=== PATIENT | male | born 1980 | race Caucasian/White ===

== ENCOUNTER 2019-01-18 23:21 | Emergency (ER) | payer SELFPAY ==
[~2019-01-18 23:21] MED LIST: ALPR2TAB5 PO; CLON1TAB PO; DIVA125T PO; FLUO20CA16 PO; RISP0.5T3 PO; TRAZ-86 PO
--- NOTE | 2019-01-18 23:25 | ED.ADGEN ---
Past History Past Medical History: Alcoholism, Anxiety, Depression, Pneumonia, Other Past Surgical History: Other Smoking: Cigarettes Alcohol Use: None Drug Use: None Adult General Chief Complaint Chief Complaint ".. I was out with some friends... they offer me some marijuana... I thought .. I would take a couple hits to relax... but right after I did it... I got really fucked up in the head.. my heart was racing....It... really made me fucked up..." I ve never done marijuana .. like that.. and they all started laughing.. so I think they slipped some other shit in the marijuana.. I am already paranoid... and depressed.. I have an anxiety disorder.. and I ve had a lot loss the last year.. I loss my Grandfather.. My father in law .. I worked for him.. and then lost my job... lost my girl friend of twenty years...lost my apt... my parent threw me out...I ve been living at the nursing home... drinking too much.. just a fuck up life..." HPI HPI Patient is a 30 year old male who presents with above hx and complaints mental status change after smoking marijuana. Patient does admit to heavy alcohol prior to today. He denies any trauma or falls. Patient has past history of anxiety disorder, depression, polysubstance abuse. Pt. multiple psychosocial stressor with family deaths, break up with girl friend, job loss, loss of apt. Pt. states he is depressed but no suicidal ideation. Pt. asked to leave the nursing home after acting out. Review of Systems Review of Systems Constitutional: Denies fever or chills [] Eyes: Denies change in visual acuity, redness, or eye pain [] HENT: Denies nasal congestion or sore throat [] Respiratory: Denies cough or shortness of breath [] Cardiovascular: No additional information not addressed in HPI [] GI: Denies abdominal pain, nausea, vomiting, bloody stools or diarrhea [] : Denies dysuria or hematuria [] Musculoskeletal: Denies back pain or joint pain [] Integument: Denies rash or skin lesions [] Neurologic: Denies headache, focal weakness or sensory changes [] Endocrine: Denies polyuria or polydipsia [] All other systems were reviewed and found to be within normal limits, except as documented in this note. Family History Family History Non-contributory Current Medications Current Medications Current Medications Medications (Trade) Dose Ordered Sig/Adrienne Start Time Stop Time Status Last Admin Dose Admin Folic Acid (FOLIC ACID SYRINGE for ER) 5 mg STK-MED ONCE 01/19/19 00:06 01/19/19 00:07 DC Lactated Ringer's 1,000 ml @ 1,000 mls/hr Q1H 01/19/19 00:00 01/19/19 00:59 DC 01/19/19 00:00 1,000 MLS/HR Multivitamins/ Minerals 10 ml/ Folic Acid 1 mg/ Thiamine HCl 100 mg/Lactated Ringer's 1,011.2 ml @ 1,011.2 mls/hr 1X ONCE 01/19/19 00:00 01/19/19 00:59 DC 01/19/19 00:00 1,011.2 MLS/HR Potassium Chloride (KCl Oral Soln) 40 meq 1X ONCE 01/19/19 01:00 01/19/19 01:01 DC 01/19/19 00:52 40 MEQ Thiamine HCl (Thiamine Vial) 200 mg STK-MED ONCE 01/19/19 00:07 01/19/19 00:08 DC Allergies Allergies Allergies Coded Allergies Type Severity Reaction Last Updated Verified Sulfa (Sulfonamide Antibiotics) Allergy Intermediate swelling 01/09/15 Yes Physical Exam Physical Exam Constitutional: in acute emotional distress, under the influence of some drug or alcohol in appearance. [] Hair cut close on sides. HENT: Normocephalic, atraumatic, bilateral external ears normal, oropharynx moist, no oral exudates, nose normal. [] Eyes: PERRLA, EOMI, conjunctiva injected, , no discharge. [] Neck: Normal range of motion, no tenderness, supple, no stridor. [] Cardiovascular:Tachycardia Heart rate regular rhythm, no murmur [] Lungs & Thorax: Bilateral breath sounds equal with scattered wheezes on auscultation [] Abdomen: Bowel sounds normal, soft, no tenderness, no masses, no pulsatile masses. [] Skin: Warm, dry, no erythema, no rash. [] Back: No tenderness, no CVA tenderness. [] Extremities: No tenderness, no cyanosis, no clubbing, ROM intact, no edema. [] Neurologic: Alert and oriented X 3, normal motor function, normal sensory function, no focal deficits noted. []DTR+ Patella and brachial. No drift. [place] equal. Ambulatory. Psychologic: Affect anxious, judgement normal, mood depressed. Current Patient Data Vital Signs Vital Signs Date Time Temp Pulse Resp B/P (MAP) Pulse Ox O2 Delivery O2 Flow Rate FiO2 01/19/19 02:00 82 14 102/56 (71) 96 01/19/19 00:26 Room Air 01/18/19 23:45 98.6 Lab Results Laboratory Tests Test 01/18/19 23:50 01/18/19 23:55 Urine Collection Type Unknown Urine Color Yellow Urine Clarity Clear Urine pH 5.5 Urine Specific [place] <=1.005 Urine Protein Neg (NEG-TRACE) Urine Glucose (UA) Neg mg/dL (NEG) Urine Ketones (Stick) Neg mg/dL (NEG) Urine Blood Neg (NEG) Urine Nitrite Neg (NEG) Urine Bilirubin Neg (NEG) Urine Urobilinogen Dipstick 0.2 mg/dL (0.2 mg/dL) Urine Leukocyte Esterase Neg (NEG) Urine RBC 0 /HPF (0-2) Urine WBC Occ /HPF (0-4) Urine Squamous Epithelial Cells Occ /LPF Urine Bacteria 0 /HPF (0-FEW) Urine Opiates Screen Neg (NEG) Urine Methadone Screen Neg (NEG) Urine Barbiturates Neg (NEG) Urine Phencyclidine Screen Neg (NEG) Urine Amphetamine/Methamphetamine Neg (NEG) Urine Benzodiazepines Screen Pos (NEG) Urine Cocaine Screen Neg (NEG) Urine Cannabinoids Screen Pos (NEG) Urine Ethyl Alcohol Pos (NEG) White Blood Count 12.0 x10^3/uL (4.0-11.0) H Red Blood Count 4.93 x10^6/uL (4.30-5.70) Hemoglobin 14.7 g/dL (13.0-17.5) Hematocrit 43.3 % (39.0-53.0) Mean Corpuscular Volume 88 fL (79-100) Mean Corpuscular Hemoglobin 30 pg (25-35) Mean Corpuscular Hemoglobin Concent 34 g/dL (31-37) Red Cell Distribution Width 14.2 % (11.5-14.5) Platelet Count 214 x10^3/uL (140-400) Neutrophils (%) (Auto) 69 % (31-73) Lymphocytes (%) (Auto) 21 % (24-48) L Monocytes (%) (Auto) 8 % (0-9) Eosinophils (%) (Auto) 2 % (0-3) Basophils (%) (Auto) 1 % (0-3) Neutrophils # (Auto) 8.2 x10^3uL (1.8-7.7) H Lymphocytes # (Auto) 2.5 x10^3/uL (1.0-4.8) Monocytes # (Auto) 0.9 x10^3/uL (0.0-1.1) Eosinophils # (Auto) 0.2 x10^3/uL (0.0-0.7) Basophils # (Auto) 0.1 x10^3/uL (0.0-0.2) Prothrombin Time 11.0 SEC (9.4-11.4) Prothrombin Time INR 1.1 (0.9-1.1) PTT 24 SEC (23-33) Sodium Level 140 mmol/L (136-145) Potassium Level 3.2 mmol/L (3.5-5.1) L Chloride Level 102 mmol/L (98-107) Carbon Dioxide Level 28 mmol/L (21-32) Anion Gap 10 (6-14) Blood Urea Nitrogen 9 mg/dL (8-26) Creatinine 1.2 mg/dL (0.7-1.3) Estimated GFR (Cockcroft-Gault) 67.8 Glucose Level 103 mg/dL (70-99) H Calcium Level 8.2 mg/dL (8.5-10.1) L Magnesium Level 2.0 mg/dL (1.8-2.4) Total Bilirubin 0.3 mg/dL (0.2-1.0) Direct Bilirubin 0.1 mg/dL (0.0-0.2) Aspartate Amino Transferase (AST) 16 U/L (15-37) Alanine Aminotransferase (ALT) 17 U/L (16-63) Alkaline Phosphatase 71 U/L (46-116) Creatine Kinase 129 U/L (39-308) Troponin I Quantitative < 0.017 ng/mL (0-0.055) TS-Lls-K-Type Natriuretic Peptide 11 pg/mL (0-124) Total Protein 6.2 g/dL (6.4-8.2) L Albumin 3.4 g/dL (3.4-5.0) Lipase 143 U/L (73-393) Ethyl Alcohol Level 31 mg/dL (0-10) H EKG EKG My interpretation EKG shows a sinus rhythm at 94 bpm. There is some left axis deviation. Fascicular block. But no findings acute STEMI with contralateral changes.[] Pt. declined 2nd EKG Radiology/Procedures Radiology/Procedures My interpretation chest x-ray shows no acute cardiopulmonary findings.[] Course & Med Decision Making Course & Med Decision Making Pertinent Labs and Imaging studies reviewed. (See chart for details) Pt. declined second EKG and Labs. Pt. stating he just needed a place to sleep tonight. Pt. encouraged to stop smoking tobacco and marijuana. Keep follow up at [facility]. Follow up with primary. Return if any concerns. Avoid further alcohol binges. Return if he elects to repeat his EKG and Labs as recommended. [] Final Impression Final Impression 1. Polysubstance Abuse 2. Anxiety Disorder 3. Depression 4. Tobacco and Marijuana Use[] 5. Possible Abnormal EKG- Fascicular Block and Anteroseptal contour changes 6. Hypokalemia 7. Hx ETOH Abuse Dragon Disclaimer Dragon Disclaimer This electronic medical record was generated, in whole or in part, using a voice recognition dictation system. Discharge Summary Visit Information Final Diagnosis Problems Medical Problems: (1) Polysubstance (excluding opioids) dependence, daily use Status: Acute Brief Hospital Course Allergies Allergies Coded Allergies Type Severity Reaction Last Updated Verified Sulfa (Sulfonamide Antibiotics) Allergy Intermediate swelling 01/09/15 Yes Vital Signs Vital Signs Date Time Temp Pulse Resp B/P (MAP) Pulse Ox O2 Delivery O2 Flow Rate FiO2 01/19/19 02:00 82 14 102/56 (71) 96 01/19/19 00:26 Room Air 01/18/19 23:45 98.6 Lab Results Laboratory Tests Test 01/18/19 23:50 01/18/19 23:55 Urine Collection Type Unknown Urine Color Yellow Urine Clarity Clear Urine pH 5.5 Urine Specific [place] <=1.005 Urine Protein Neg (NEG-TRACE) Urine Glucose (UA) Neg mg/dL (NEG) Urine Ketones (Stick) Neg mg/dL (NEG) Urine Blood Neg (NEG) Urine Nitrite Neg (NEG) Urine Bilirubin Neg (NEG) Urine Urobilinogen Dipstick 0.2 mg/dL (0.2 mg/dL) Urine Leukocyte Esterase Neg (NEG) Urine RBC 0 /HPF (0-2) Urine WBC Occ /HPF (0-4) Urine Squamous Epithelial Cells Occ /LPF Urine Bacteria 0 /HPF (0-FEW) Urine Opiates Screen Neg (NEG) Urine Methadone Screen Neg (NEG) Urine Barbiturates Neg (NEG) Urine Phencyclidine Screen Neg (NEG) Urine Amphetamine/Methamphetamine Neg (NEG) Urine Benzodiazepines Screen Pos (NEG) Urine Cocaine Screen Neg (NEG) Urine Cannabinoids Screen Pos (NEG) Urine Ethyl Alcohol Pos (NEG) White Blood Count 12.0 x10^3/uL (4.0-11.0) Red Blood Count 4.93 x10^6/uL (4.30-5.70) Hemoglobin 14.7 g/dL (13.0-17.5) Hematocrit 43.3 % (39.0-53.0) Mean Corpuscular Volume 88 fL (79-100) Mean Corpuscular Hemoglobin 30 pg (25-35) Mean Corpuscular Hemoglobin Concent 34 g/dL (31-37) Red Cell Distribution Width 14.2 % (11.5-14.5) Platelet Count 214 x10^3/uL (140-400) Neutrophils (%) (Auto) 69 % (31-73) Lymphocytes (%) (Auto) 21 % (24-48) Monocytes (%) (Auto) 8 % (0-9) Eosinophils (%) (Auto) 2 % (0-3) Basophils (%) (Auto) 1 % (0-3) Neutrophils # (Auto) 8.2 x10^3uL (1.8-7.7) Lymphocytes # (Auto) 2.5 x10^3/uL (1.0-4.8) Monocytes # (Auto) 0.9 x10^3/uL (0.0-1.1) Eosinophils # (Auto) 0.2 x10^3/uL (0.0-0.7) Basophils # (Auto) 0.1 x10^3/uL (0.0-0.2) Prothrombin Time 11.0 SEC (9.4-11.4) Prothromb Time International Ratio 1.1 (0.9-1.1) Activated Partial Thromboplast Time 24 SEC (23-33) Sodium Level 140 mmol/L (136-145) Potassium Level 3.2 mmol/L (3.5-5.1) Chloride Level 102 mmol/L (98-107) Carbon Dioxide Level 28 mmol/L (21-32) Anion Gap 10 (6-14) Blood Urea Nitrogen 9 mg/dL (8-26) Creatinine 1.2 mg/dL (0.7-1.3) Estimated GFR (Cockcroft-Gault) 67.8 Glucose Level 103 mg/dL (70-99) Calcium Level 8.2 mg/dL (8.5-10.1) Magnesium Level 2.0 mg/dL (1.8-2.4) Total Bilirubin 0.3 mg/dL (0.2-1.0) Direct Bilirubin 0.1 mg/dL (0.0-0.2) Aspartate Amino Transf (AST/SGOT) 16 U/L (15-37) Alanine Aminotransferase (ALT/SGPT) 17 U/L (16-63) Alkaline Phosphatase 71 U/L (46-116) Creatine Kinase 129 U/L (39-308) Troponin I Quantitative < 0.017 ng/mL (0-0.055) IF-Gzj-L-Type Natriuretic Peptide 11 pg/mL (0-124) Total Protein 6.2 g/dL (6.4-8.2) Albumin 3.4 g/dL (3.4-5.0) Lipase 143 U/L (73-393) Ethyl Alcohol Level 31 mg/dL (0-10) Brief Hospital Course Mr. Kelly is a 38 old male who presented with hx of confusion after smoking marijuana with friends. Discharge Information Condition at Discharge: Improved, Stable Disposition/Orders: D/C to Home Dischare Medications Current Medications Lactated Ringer's 1,000 ml @ 1,000 mls/hr Q1H IV Last administered on 01/19/19at 00:00; Admin Dose 1,000 MLS/HR; Start 01/19/19 at 00:00; Stop 01/19/19 at 00:59; Status DC Multivitamins/ Minerals 10 ml/ Folic Acid 1 mg/ Thiamine HCl 100 mg/Lactated Ringer's 1,011.2 ml @ 1,011.2 mls/hr 1X ONCE IV Last administered on 01/19/19at 00:00; Admin Dose 1,011.2 MLS/HR; Start 01/19/19 at 00:00; Stop 01/19/19 at 00:59; Status DC Folic Acid (FOLIC ACID SYRINGE for ER) 5 mg STK-MED ONCE IV ; Start 01/19/19 at 00:06; Stop 01/19/19 at 00:07; Status DC Thiamine HCl (Thiamine Vial) 200 mg STK-MED ONCE IV ; Start 01/19/19 at 00:07; Stop 01/19/19 at 00:08; Status DC Potassium Chloride (KCl Oral Soln) 40 meq 1X ONCE PO Last administered on 01/19/19at 00:52; Admin Dose 40 MEQ; Start 01/19/19 at 01:00; Stop 01/19/19 at 01:01; Status DC Active Scripts Active Reported Prozac (Fluoxetine Hcl) 20 Mg Capsule 1 Cap PO DAILY Alprazolam 2 Mg Tablet 1 Tab PO BID Kevin Disclaimer This chart was dictated in whole or in part using Voice Recognition software in a busy, high-work load, and often noisy Emergency Department environment. It may contain unintended and wholly unrecognized errors or omissions. AMY DOLL MD Jan 18, 2019 23:25
[2019-01-19] MEDS ORDERED: MVI, ADULT NO.4 WITH VIT K 10 ML, FOLIC ACID SYRINGE for ER 1 MG, THIAMINE INJ 100 MG i... IV ONE ×4
[2019-01-19] MEDS ORDERED: IV RINGERS SOLUTION,LACTATED 1,000 ML IV SCH
[2019-01-19] MEDS ORDERED: FOLIC ACID 5 MG/ML SYRINGE for ER IV ONE (00:06)
[2019-01-19] MEDS ORDERED: THIAMINE 200 MG/2 ML VIAL. IV ONE (00:07)
[2019-01-19 00:19] LABS: BASO # 0.1 x10^3/uL (0.0-0.2); BASO % 1 % (0-3); EOS # 0.2 x10^3/uL (0.0-0.7); EOS % 2 % (0-3); HEMATOCRIT 43.3 % (39.0-53.0); HEMOGLOBIN 14.7 g/dL (13.0-17.5); LYMPH # 2.5 x10^3/uL (1.0-4.8); LYMPH % 21 % (24-48); MEAN CORPUSCULAR HEMOGLOBIN 30 pg (25-35); MEAN CORPUSCULAR HGB CONC 34 g/dL (31-37); MEAN CORPUSCULAR VOLUME 88 fL (79-100); MONO # 0.9 x10^3/uL (0.0-1.1); MONO % 8 % (0-9); NEUT # 8.2 x10^3uL (1.8-7.7); NEUT % 69 % (31-73); PLATELET COUNT 214 x10^3/uL (140-400); RED BLOOD COUNT 4.93 x10^6/uL (4.30-5.70); RED CELL DISTRIBUTION WIDTH 14.2 % (11.5-14.5)
[2019-01-19 00:31] LABS: BARBITURATES NEG (NEG); BENZODIAZEPINES POS (NEG); CANNABINOIDS POS (NEG); COCAINE NEG (NEG); METHADONE NEG (NEG); OPIATES NEG (NEG); PHENCYCLIDINE NEG (NEG)
[2019-01-19 00:33] LABS: BACTERIA,URINE 0 /HPF (0-FEW); BILIRUBIN,URINE NEG (NEG); CLARITY,URINE CLEAR; COLOR,URINE YELLOW; GLUCOSE,URINE NEG (NEG); NITRITE,URINE NEG (NEG); RBC,URINE 0 /HPF (0-2); SQUAMOUS EPITHELIAL CELL,UR OCC /LPF; UROBILINOGEN,URINE 0.2 mg/dL (0.2 mg/dL); WBC,URINE OCC /HPF (0-4)
[2019-01-19 00:37] LABS: AMPHETAMINE/METHAMPHETAMINE NEG (NEG)
[2019-01-19 00:40] LABS: ALBUMIN 3.4 g/dL (3.4-5.0); CALCIUM 8.2 mg/dL (8.5-10.1); CREATININE 1.2 mg/dL (0.7-1.3); DIRECT BILIRUBIN 0.1 mg/dL (0.0-0.2); GFR 67.8; POTASSIUM 3.2 mmol/L (3.5-5.1); TOTAL BILIRUBIN 0.3 mg/dL (0.2-1.0); TOTAL PROTEIN 6.2 g/dL (6.4-8.2)
[2019-01-19] MEDS ORDERED: POTASSIUM CHLORIDE 20 MEQ/15 ML ORAL LIQUID. PO ONE (01:00)
--- NOTE | 2019-01-19 01:01 | RAD ---
Indication:Tachycardia TECHNIQUE:Portable AP chest X-ray COMPARISON:None FINDINGS: Heart is normal in size. Mild central bilateral peribronchial wall thickening. No focal consolidation. No pneumothorax or pleural effusion. Visualized bony thorax within normal limits. IMPRESSION: Findings suggests mild bronchitis. Electronically signed by: Travis Garcia DO (01/19/2019 12:59 AM) [facility]
[2019-01-19 02:00] VITALS: BP 102/56
--- NOTE | 2019-01-19 10:40 | EKG ---
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 Electronically Signed On 01-22-2019 9:29:52 CDT by Kailash Solano
== END 2019-01-19 02:00 | disposition home or self-care (01) ==
LOC: ER 23:21
DX: F19.20 Other psychoactive substance dependence, uncomplicated (principal); F41.9 Anxiety disorder, unspecified; F32.9 Major depressive disorder, single episode, unspecified; E87.6 Hypokalemia; F12.90 Cannabis use, unspecified, uncomplicated; F17.210 Nicotine dependence, cigarettes, uncomplicated; F10.20 Alcohol dependence, uncomplicated; Z88.2 Allergy status to sulfonamides; Y90.1 Blood alcohol level of 20-39 mg/100 ml
CPT/HCPCS: 36415; 71045; 80048; 80076; 80307; 81001; 82550; 83690; 83735; 83880; 84443; 84484; 85025; 85610; 85730; 93005; 96365; 99285; G0480; J7120

== ENCOUNTER 2019-04-18 11:00 | Emergency (ER) | payer SELFPAY ==
[~2019-04-18] VITALS: Ht 172.7 cm; Wt 68.0 kg
--- NOTE | 2019-04-18 11:25 | PHYS DOC ---
Past History Past Medical History: Anxiety, Bipolar Past Surgical History: Other Smoking: Cigarettes Alcohol Use: Occasionally Drug Use: None Adult General Chief Complaint Chief Complaint: ANKLE PROBLEM HPI HPI 39-year-old male presents with right ankle and right knee pain. The patient states that yesterday he was jumping off of a wall about 15 feet high. He feels like when he landed he may have hyperextended his knee and felt like his foot compressed more than the other side. He had some pain at that time, but was able to walk gently ignored it. After he woke up today, he had more pain. The greatest pain is at the anterior ankle, but he also has some lateral knee pain. The patient is able to walk, but tells me that putting weight on those 2 joints is painful. He denies fever or chills. He has no other complaints. Review of Systems Review of Systems Constitutional: Denies fever or chills [] Eyes: Denies change in visual acuity, redness, or eye pain [] HENT: Denies nasal congestion or sore throat [] Respiratory: Denies cough or shortness of breath [] Cardiovascular: No additional information not addressed in HPI [] GI: Denies abdominal pain, nausea, vomiting, bloody stools or diarrhea [] : Denies dysuria or hematuria [] Musculoskeletal: Right knee and right ankle pain [] Integument: Denies rash or skin lesions [] Neurologic: Denies headache, focal weakness or sensory changes [] Endocrine: Denies polyuria or polydipsia [] All other systems were reviewed and found to be within normal limits, except as documented in this note. Allergies Allergies Allergies Coded Allergies Type Severity Reaction Last Updated Verified Sulfa (Sulfonamide Antibiotics) Allergy Intermediate swelling 01/09/15 Yes Physical Exam Physical Exam Constitutional: Well developed, well nourished, no acute distress, non-toxic appearance. [] HENT: Normocephalic, atraumatic, bilateral external ears normal, oropharynx moist, no oral exudates, nose normal. [] Eyes: PERRLA, EOMI, conjunctiva normal, no discharge. [] Neck: Normal range of motion, no tenderness, supple, no stridor. [] Cardiovascular:Heart rate regular rhythm, no murmur [] Lungs & Thorax: Bilateral breath sounds clear to auscultation [] Abdomen: Bowel sounds normal, soft, no tenderness, no masses, no pulsatile masses. [] Skin: Warm, dry, no erythema, no rash. [] Back: No tenderness, no CVA tenderness. [] Extremities: Mild joint tenderness of the right knee, no ecchymosis, no edema or deformity. Tenderness over the anterior ankle. No ecchymosis or obvious deformity[] Neurologic: Alert and oriented X 3, normal motor function, normal sensory function, no focal deficits noted. [] Psychologic: Affect normal, judgement normal, mood normal. [] Current Patient Data Vital Signs Vital Signs Date Time Temp Pulse Resp B/P (MAP) Pulse Ox O2 Delivery O2 Flow Rate FiO2 04/18/19 11:16 98.7 82 20 100 Room Air EKG EKG [] Radiology/Procedures Radiology/Procedures [] Impressions: Right knee 3 views, right ankle 3 views. HISTORY: Pain after a fall Right ankle 3 views were taken of the right ankle. There is not evidence of an acute fracture or osseous abnormality. Slight irregularity of the fibula suggests a possible old injury which has healed. Right knee 3 views were taken of the right knee. There is no fracture or joint effusion or acute osseous abnormality. IMPRESSION: 1. Negative right knee. 2. No fracture or acute osseous abnormality in the right ankle. Electronically signed by: Liz Duvall MD (04/18/2019 11:44 AM) [facility] DICTATED AND SIGNED BY: LIZ DUVALL MD DATE: 04/18/19 1144 CC: KRISTI COLLINS DO; PCP,NO ~ Course & Med Decision Making Course & Med Decision Making Pertinent Labs and Imaging studies reviewed. (See chart for details) The patient's x-rays are negative for fracture. I believe he likely has a bone contusion from that he jumped and jamming his joints. I have advised ice, rest, and ibuprofen. The patient stable for discharge at this time. [] Dragon Disclaimer Dragon Disclaimer This electronic medical record was generated, in whole or in part, using a voice recognition dictation system. Departure Departure: Impression: Primary Impression: Contusion of bone Disposition: HOME, SELF-CARE Condition: STABLE Referrals: PCP,NO (PCP) Patient Instructions: Contusion, [id number] KRISTI COLLINS DO Apr 18, 2019 11:25
--- NOTE | 2019-04-18 11:47 | RAD ---
Right knee 3 views, right ankle 3 views. HISTORY: Pain after a fall Right ankle 3 views were taken of the right ankle. There is not evidence of an acute fracture or osseous abnormality. Slight irregularity of the fibula suggests a possible old injury which has healed. Right knee 3 views were taken of the right knee. There is no fracture or joint effusion or acute osseous abnormality. IMPRESSION: 1. Negative right knee. 2. No fracture or acute osseous abnormality in the right ankle. Electronically signed by: Yimi Nicolas MD (04/18/2019 11:44 AM) [facility]
[2019-04-18 12:15] VITALS: BP 116/67
== END 2019-04-18 12:20 | disposition home or self-care (01) ==
LOC: ER 11:00
DX: S80.01XA Contusion of right knee, initial encounter (principal); M25.571 Pain in right ankle and joints of right foot; W17.89XA Other fall from one level to another, initial encounter; Y93.39 Activity, other involving climbing, rappelling and jumping off; Y92.89 Other specified places as the place of occurrence of the external cause; Y99.8 Other external cause status
CPT/HCPCS: 73562; 73610; 99284